=== PATIENT | male | born 1985 | race African-American/Black ===

== ENCOUNTER 2017-02-08 20:07 | Emergency (ER) | payer SELFPAY ==
[2017-02-08 20:16] VITALS: BP 120/72; PULSE 96; RESP 18; TEMP 97.8; O2SAT 98
--- NOTE | 2017-02-08 20:46 | RADRPT ---
EXAM DATE/TIME: 02/08/2017 20:28 [facility] COMPARISON: No previous studies available for comparison. INDICATIONS : Pelvic pain after fall. MEDICAL HISTORY : None. SURGICAL HISTORY : None. ENCOUNTER: Initial ACUITY: 1 day PAIN SCORE: 0/10 LOCATION: Bilateral pelvis. FINDINGS: A single frontal view of the pelvis demonstrates no evidence of fracture. The bony pelvic ring is in tact. Bony mineralization is normal. The soft tissues are intact. CONCLUSION: Unremarkable examination of the pelvis. Wei Jansen MD on February 08, 2017 at 20:44 Board Certified Radiologist. This report was verified electronically.
--- NOTE | 2017-02-08 20:47 | RADRPT ---
EXAM DATE/TIME: 02/08/2017 20:29 [facility] COMPARISON: No previous studies available for comparison. INDICATIONS : Lower back pain. MEDICAL HISTORY : None. SURGICAL HISTORY : None. ENCOUNTER: Initial ACUITY: 1 day PAIN SCORE: 10/10 LOCATION: Bilateral lower back. FINDINGS: Two view examination was performed. There are five non-rib bearing vertebral bodies. The vertebral bodies are in normal alignment without evidence of subluxation or scoliosis. There is mild disc spac e loss of height at the L4-L5 and L5-S1 levels. The pedicles are intact. Bony mineralization is nor mal. No fracture is identified. CONCLUSION: Mild loss of height at the L4-L5 and L5-S1 disc levels. Wei Jansen MD on February 08, 2017 at 20:44 Board Certified Radiologist. This report was verified electronically.
--- NOTE | 2017-02-08 21:24 | PD ---
HPI Chief Complaint: Medical Clearance Time Seen by Provider: 21:20 Travel History International Travel<30 days: No Contact w/Intl Traveler<30days: No Traveled to known affect area: No History of Present Illness HPI 31-year-old male that presents to the ED for evaluation of back pain after being arrested. Patient was arrested by police and was brought here for evaluation after apparently the arrest he started complaining of back pain. Per patient he has had back pain since an injury he had about a week ago when he was also arrested and he was put in long-term he had a fight in long-term. He states that today he had pain after he was arrested. He denies any other injuries. No fevers chills or sweats. Per patient the pain moves to his left hip. He denies any numbness, tingling, weakness. She is able to ambulate without difficulty. He denies any history of surgeries to the abdomen or back. He has not taken anything for this. He denies no chest or shortness of breath. No head injury. Per patient he spent is 6 out of 10. No allergies to medication. No prior injuries. [facility], [facility] Past Medical History Medical History: Denies Significant Hx Diminished Hearing: No Past Surgical History Surgical History: No Previous Surgery Social History Alcohol Use: No Tobacco Use: No Substance Use: No Allergies-Medications (Allergen,Severity, Reaction): Coded Allergies: No Known Allergies (Unverified , 02/08/17) Reported Meds & Prescriptions Reported Meds & Active Scripts Active No Active Prescriptions or Reported Medications Review of Systems Except as stated in HPI: all other systems reviewed are Neg Physical Exam Narrative GENERAL: SKIN: Warm and dry. HEAD: Atraumatic. Normocephalic. EYES: Pupils equal and round. No scleral icterus. No injection or drainage. ENT: No nasal bleeding or discharge. Mucous membranes pink and moist.Tongue is midline. No uvula deviation. NECK: Trachea midline. No JVD. CARDIOVASCULAR: Regular rate and rhythm. No murmurs, S3, S4. RESPIRATORY: No accessory muscle use. Clear to auscultation. Breath sounds equal bilaterally. GASTROINTESTINAL: Abdomen soft, non-tender, nondistended. Hepatic and splenic margins not palpable. MUSCULOSKELETAL: Extremities without clubbing, cyanosis, or edema. No obvious deformities. Full range of motion of the upper and lower extremities bilaterally. 2+ pulses bilaterally. Patient has no lumbar, thoracic, cervical spine tenderness to palpation. Patient does have reproducible pain on the left back. Straight leg test negative. Neurovascular intact. NEUROLOGICAL: Awake and alert. No obvious cranial nerve deficits. Motor grossly within normal limits. Five out of 5 muscle strength in the arms and legs. Normal speech. PSYCHIATRIC: Appropriate mood and affect; insight and judgment normal. Data Data Last Documented VS Vital Signs Date Time Temp Pulse Resp B/P Pulse Ox O2 Delivery O2 Flow Rate FiO2 02/08/17 20:21 18 02/08/17 20:16 97.8 96 120/72 98 Orders Pelvis, Ap Only (Routine) (02/08/17 20:14) Spine, Lumbar - Ltd (Ap & Lat) (02/08/17 20:14) Ct Lumb Spine W/O Contrast (02/08/17 ) [facility] Medical Decision Making Medical Screen Exam Complete: Yes Emergency Medical Condition: Yes Medical Record Reviewed: Yes Interpretation(s) Last Impressions Pelvis X-Ray 02/08/172013 Signed Impressions: Service Date/Time: Wednesday, February 08, 2017 20:28 - CONCLUSION: Unremarkable examination of the pelvis. Wei Jansen MD Lumbar Spine X-Ray 02/08/172013 Signed Impressions: Service Date/Time: Wednesday, February 08, 2017 20:29 - CONCLUSION: Mild loss of height at the L4-L5 and L5-S1 disc levels. Wei Jansen MD Last Impressions Pelvis X-Ray 02/08/172013 Signed Impressions: Service Date/Time: Wednesday, February 08, 2017 20:28 - CONCLUSION: Unremarkable examination of the pelvis. Wei Jansen MD Lumbar Spine X-Ray 02/08/172013 Signed Impressions: Service Date/Time: Wednesday, February 08, 2017 20:29 - CONCLUSION: Mild loss of height at the L4-L5 and L5-S1 disc levels. Wei Jansen MD Lumbar Spine CT 02/08/17 Signed Impressions: Service Date/Time: Wednesday, February 08, 2017 21:14 - CONCLUSION: 1. Mild to moderate left paracentral to lateral recess disc protrusion at the L4-L5 level. 2. Mild central disc protrusion at the L5-S1 level with mild osteophytes. Wei Jansen MD Differential Diagnosis Back pain versus back injury versus herniated disc versus acute on chronic pain versus malingering Narrative Course 31-year-old male that presents to the ED for evaluation of back pain. Patient was properly examined and was found to have signs and symptoms consistent appears to be back pain. Likely muscle scale. Imaging was ordered as patient did sustain an injury 2. X-rays did show mild loss of height. Case discussed in my attending who recommends imaging. CT was ordered. CT showed mild changes to the lumbar spine. Case was discussed in my attending who was made aware of findings and agrees with plan. Patient will be discharged to long-term with prescription for diclofenac sodium. Patient was told that he needs to follow up with compound specialist whenever he gets out of long-term. Follow with PCP. See ED worsening symptoms. Diagnosis Primary Impression: Lumbar spine pain Patient Instructions: General Instructions Additional Instructions: Take medication as prescribed. Follow-up with compound specialist. See ED worsening symptoms. Follow with PCP. Med/Other Pt SpecificInfo: Prescription(s) given Scripts Diclofenac Sodium DR 75 Mg Tabdr75 Mg PO BID PRN (PAIN SCALE 1 TO 10) #20 TAB Prov:Indira Yadav MD 02/08/17 Disposition: 01 DISCHARGE HOME Condition: Stable Andrei Wise Feb 08, 2017 21:24
--- NOTE | 2017-02-08 22:04 | RADRPT ---
EXAM DATE/TIME: 02/08/2017 21:14 [facility] COMPARISON: No previous studies available for comparison. INDICATIONS : Lower back from fall. Abnormal X-ray. RADIATION DOSE: 35.86 CTDIvol (mGy) MEDICAL HISTORY : None SURGICAL HISTORY : None. ENCOUNTER: Initial ACUITY: 1 day PAIN SCALE: 10/10 LOCATION: Lumbar spine TECHNIQUE: Volumetric scanning of the lumbar spine was performed. Multiplanar reconstructions in the sagittal, coronal and oblique axial planes were performed. Using automated exposure control and adjustment of the mA and/or kV according to patient size, radiation dose was kept as low as reasonably achievable t o obtain optimal diagnostic quality images. DICOM format image data is available electronically for review and comparison. FINDINGS: VERTEBRAE: Normal vertebral body height. ALIGNMENT: No evidence of subluxation. T12-L1: The thecal sac has a normal diameter. No evidence of disc bulge or protrusion. The neural foramina are patent bilaterally. L1-L2: The thecal sac has a normal diameter. No evidence of disc bulge or protrusion. The neural foramina are patent bilaterally. L2-L3: The thecal sac has a normal diameter. No evidence of disc bulge or protrusion. The neural foramina are patent bilaterally. L3-L4: The thecal sac has a normal diameter. No evidence of disc bulge or protrusion. The neural foramina are patent bilaterally. L4-L5: The disc demonstrates mild decrease height. There is a mild to moderate left paracentral to left late ral recess disc protrusion. This does cause some narrowing of the left lateral recess. The remaining aspect of the thecal sac appears normal. The neural foramina are patent bilaterally. L5-S1: The disc and adjacent decrease height. There is a mild central disc protrusion causing mild impress o n the anterior epidural space. There are marginal osteophytes associated with this disc protrusion. S ignificant narrowing of the thecal sac is not seen. The neural foramina are patent bilaterally. CONCLUSION: 1. Mild to moderate left paracentral to lateral recess disc protrusion at the L4-L5 level. 2. Mild central disc protrusion at the L5-S1 level with mild osteophytes. Wei Jansen MD on February 08, 2017 at 21:58 Board Certified Radiologist. This report was verified electronically.
[2017-02-08] MEDS ORDERED: DICL75TA PO (22:15)
[2017-02-08] MEDS ORDERED: ACETAMINOPHEN/HYDROcodone 325 MG/5 MG TAB PO ONE (22:30)
== END 2017-02-08 22:53 | disposition home or self-care (01) ==
LOC: NEDAMB 20:07
DX: M54.5 Low back pain (principal)
CPT/HCPCS: 72100; 72131; 72170; 99284